=== PATIENT | male | born 1965 | race African-American/Black ===

== ENCOUNTER 2019-10-19 19:04 | Emergency (ER) | payer SELFPAY ==
[~2019-10-19] VITALS: Ht 175.3 cm; Wt 77.1 kg
[2019-10-19 19:08] VITALS: BP 118/80
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
[2019-10-19 19:56] VITALS: BP 118/80
--- NOTE | 2019-10-19 19:56 | NUR ---
AMA: SEE AMA FORM. Pt left AMA stating that he "just wants to be outside, I don't want to stay here!" pt signed AMA form
--- NOTE | 2019-10-19 19:56 | NUR ---
[facility] is here,but patient left already.
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
== END 2019-10-19 19:56 | disposition left against medical advice (07) ==
LOC: EDBD 19:04 → EMR 19:30
DX: M79.603 Pain in arm, unspecified (principal); E11.9 Type 2 diabetes mellitus without complications
CPT/HCPCS: 99281